=== PATIENT | male | born 1965 | race Caucasian/White ===

== ENCOUNTER → 2016-07-22 | Outpatient (CLI) | payer BC ==
[~2016-07-22] MED LIST: ADVIL200 MG PO; ASPIR-LOW81 MG PO; DILAUDID2 MG PO; FLEXERIL10 MG PO; Flintstones PO; HYDROCODON-ACE1 EAC7 PO; NEURONTIN300 MG PO; PERCOCET 5/31 TABLET PO; Vicodin,Lortab 5/500 PO
== END | disposition home or self-care (01) ==
LOC: CDC 12:42
DX: Z01.810 Encounter for preprocedural cardiovascular examination (principal); I49.1 Atrial premature depolarization; G56.00 Carpal tunnel syndrome, unspecified upper limb
CPT/HCPCS: 93000

== ENCOUNTER → 2018-02-25 | Outpatient (CLI) | payer BC | END | disposition home or self-care (01) | LOC: RAD 13:54 | PROC: 3E0R3KZ Introduction of Other Diagnostic Substance into Spinal Canal, Percutaneous Approach (ICD-10-PCS; principal; 2018-02-25) | DX: M50.322 Other cervical disc degeneration at C5-C6 level (principal); M25.78 Osteophyte, vertebrae; M48.02 Spinal stenosis, cervical region | CPT/HCPCS: 62302; 72126 ==